=== PATIENT | female | born 1950 | race Caucasian/White ===

== ENCOUNTER 2017-10-09 00:09 | Emergency (ER) | payer OTHER, BC ==
[~2017-10-09] VITALS: Ht 170.2 cm; Wt 81.6 kg
[~2017-10-09 00:09] MED LIST: ALPRAZOLAM0.5 MG PO; AMLODIPINE BES2.5 MG PO; ANTI-DIARRHEA2 MG PO; ASPIR-LOW81 MG PO; AUGMENTIN875 MG PO; AZOR 5/20 MG1 TABLET PO; FOLIC ACID1 MG PO; INDERAL LA60 MG PO; INDERAL60 MG PO; PANTOPRAZOLE SO40 MG PO; PRILOSEC40 MG PO; PROTONIX40 MG PO; SYMBICORT60 INHALAT IH; TRAMADOL HCL50 MG PO; TYLENOL REGULA325 MG PO; XANAX0.25 MG PO; XANAX0.5 MG PO; ZOCOR10 MG PO; ZOCOR20 MG PO
[2017-10-09 02:51] VITALS: BP 103/60
== END 2017-10-09 02:32 | disposition home or self-care (01) ==
LOC: EME → EDBD 00:09 → EME 02:32
DX: S09.90XA Unspecified injury of head, initial encounter (principal); Y04.2XXA Assault by strike against or bumped into by another person, initial encounter; I10 Essential (primary) hypertension; K21.9 Gastro-esophageal reflux disease without esophagitis; E78.5 Hyperlipidemia, unspecified; J43.9 Emphysema, unspecified; J45.909 Unspecified asthma, uncomplicated; Z87.891 Personal history of nicotine dependence; Z90.49 Acquired absence of other specified parts of digestive tract; Z91.040 Latex allergy status; Z88.1 Allergy status to other antibiotic agents; Z88.2 Allergy status to sulfonamides
CPT/HCPCS: 70450; 73502; 99281; 99284